=== PATIENT | female | born 1985 | race Caucasian/White ===

== ENCOUNTER → 2018-05-18 16:22 | Outpatient (REF) | payer MEDICAID, SELFPAY ==
[2018-05-18 20:46] LABS: TSH (W/Ref FT4) 2.45 uIU/mL (0.358-3.74)
== END ==
LOC: NCHCN 16:22
PROVIDERS: PCP Nurse Practitioner Adult Health; Visit Provider Nurse Practitioner
DX: E03.9 Hypothyroidism, unspecified (principal)
CPT/HCPCS: 84443

== ENCOUNTER 2019-07-26 09:37 | Outpatient (REF) | payer MEDICAID, SELFPAY ==
[2019-07-26 12:33] LABS: TSH (W/Ref FT4) 1.61 uIU/mL (0.36-3.74)
== END 2019-07-26 09:57 ==
LOC: NCHCN 09:37
PROVIDERS: PCP Nurse Practitioner; Visit Provider Nurse Practitioner
DX: E03.9 Hypothyroidism, unspecified (principal)
CPT/HCPCS: 84443

== ENCOUNTER 2020-04-03 10:05 | Outpatient (REF) | payer MEDICAID, SELFPAY ==
--- NOTE | 2020-04-03 08:30 | PAPFT_PTH ---
PATIENT: Chely Hooper LOC: [facility] U#:[id number] AGE/SX: 35/F ROOM: RE04/03/[address]: Nasrin Shelton NP : 1985 BED: DIS: 04/03/2020 SPEC #: [id number] RECD: 04/03/20 12:55 STATUS: YOLANDA RECristhian #: [id number] KI: 04/03/20 08:[address]: Nasrin Shelton NP DEPT: [facility] Cytology RECD BY: Ciera Bobo ENTERED: 04/03/20 12:56 SP TYPE: PAPFT OTHR DR: Rachel Montalvo Tissues: 1 - CX/ENDOCX FOR PAP SMEARS Procedures: PAP THIN PREP/[facility] Screening HPV DNA PROBE Comments: [id number]
== END 2020-04-03 10:25 ==
LOC: LBN 10:05
PROVIDERS: PCP Nurse Practitioner; Visit Provider Nurse Practitioner Women's Health
DX: Z12.4 Encounter for screening for malignant neoplasm of cervix (principal); Z11.51 Encounter for screening for human papillomavirus (HPV)
CPT/HCPCS: 88142; 87624

== ENCOUNTER 2020-08-07 13:14 | Outpatient (REF) | payer MEDICAID, SELFPAY ==
[2020-08-07 19:17] LABS: HCT 37.2 % (36.0-46.0); HGB 12.2 g/dL (11.2-15.7); MCH 29.9 pg (27.0-33.0); MCHC 32.8 % (32.0-36.0); MCV 91.2 fL (80-95); Platelet Count 253 10^3/uL (130-400); RBC 4.08 10^6/uL (3.93-5.22); RDW 11.7 % (11.7-14.6); RDW-SD 38.9 fL; WBC 8.84 10^3/uL (4.4-10.8)
[2020-08-07 19:51] LABS: ALT 16 U/L (14-59); AST 12 U/L (15-37); Albumin 3.8 g/dL (3.4-5.0); Alkaline Phosphatase 31 U/L (46-116); Anion Gap 8.7 mmol/L (3-11); BUN 15 mg/dL (7-18); Bilirubin, Total 0.3 mg/dL (0.2-1.0); CO2 25.3 mmol/L (21.0-32.0); CREATININE 0.71 mg/dL (0.55-1.02); Calcium 9.2 mg/dL (8.5-10.1); Chloride 105 mmol/L (98-107); Glucose 82 mg/dL (74-106); Potassium 4.1 mmol/L (3.5-5.1); Sodium 139 mmol/L (136-145); TSH (W/Ref FT4) 1.83 uIU/mL (0.36-3.74); Total Protein 7.6 g/dL (6.4-8.2)
[2020-08-07 20:55] LABS: Vitamin D 25 Total 41.3 ng/ml (30-100)
== END 2020-08-07 13:34 ==
LOC: NCHCN 13:14
PROVIDERS: PCP Nurse Practitioner; Visit Provider Nurse Practitioner
DX: E03.9 Hypothyroidism, unspecified (principal); R53.83 Other fatigue; Z13.21 Encounter for screening for nutritional disorder
CPT/HCPCS: 80053; 82306; 85027; 84443

== ENCOUNTER 2021-07-20 18:43 | Emergency (ER) | payer MEDICAID, SELFPAY ==
[2021-07-20 18:54] VITALS: BP 138/94; PULSE 91; RESP 18; TEMP 36.4; O2SAT 100
--- NOTE | 2021-07-20 19:00 | DI.RAD_ITS ---
Exam(s) XR FOOT RT COMPLETE EXAM: XR FOOT RT COMPLETE CLINICAL HISTORY: pain. TECHNIQUE: 2D digital imaging was performed. COMPARISON: No exams were available for comparison FINDINGS: BONES: No acute fracture is present. No bony destructive lesion is seen. JOINTS: No dislocation present. SOFT TISSUE: Normal. IMPRESSION: Unremarkable radiographs of the right foot. DATA REPOSITORY: RADIATION DOSE DELIVERED:
--- NOTE | 2021-07-20 19:01 | W.ED.GENAD ---
Discharge Plan Disposition Patient Disposition: HOME Condition: Stable Discharge Details Clinical Impression: Foot pain, right Primary Care Provider: Rachel Montalvo ED Provider: Idris Shelton Home Meds and New Rx's Prescriptions: Continued levothyroxine 75 mcg tablet 75 mcg PO DAILY RF: 0 levonorgestrel-ethinyl estrad [Jolessa] 0.15 mg-30 mcg (91) tablets,dose pack,3 month 1 tab PO DAILY Qty: 91 RF: 0 Discharge Instructions Additional Instructions: Your xray did not show a broken bone follow up with your primary care provider in a week if pain continues try to avoid heavy lifting or strenuous exercise you can take 1000mg tylenol and 600mg ibuprofen every 6 hours. Trying to keep it elevated when sitting can help along with icing the foot if you feel more ill, develop fevers or spreading redness of the foot return to the emergency department Medical Decision Making 36 yo female comes in with chief complaint right foot pain. 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 She localizes the pain to the dorsal surface of the right foot and has no visible or palpable deformity. She has full range of motion of the ankle and toes. Normal sensation and pulses, no erythema or warmth. Exam and history suspect strain or overuse injury but will xray to evaluate for fracture. No findings on exam or history to suggest osteomyelitis or other infectious etiology xray unremarkable on my read, do not feel she needs to wait for vrad read. Will have her use prn ibuprofen and tylenol and advised if pain continues in a week to follow up with pcp, return precautions given Differential Diagnosis Differential Diagnosis: strain, sprain, fracture Imaging Data Radiologic Study: Attestation: I personally reviewed and interpreted this imaging study as follows: Imaging: X-Ray My impression: no acute findings HPI General Mode of arrival: ambulatory. Date/Time Provider Initiated Documentation: 07/20/21 18:44. Limitations to Documentation: no limitations. Information obtained by: patient. History of Present Illness 36 year old F presents to the emergency department with the chief complaint of right foot pain, described as moderate, Quality is described as aching, Patient started experiencing this week(s) (1) and it has been constant. Rest improves symptom(s), Movement worsens symptoms . Patient notes no other symptoms.. Patient did receive the following treatments prior to arrival, none Related Data Home Medications Medication Instructions Recorded Confirmed levothyroxine 75 mcg tablet 75 mcg PO DAILY tab-cap 04/03/20 07/20/21 levonorgestrel 0.15 mg-ethinyl 1 tab PO DAILY #91 dose pk 06/18/21 07/20/21 estradiol 30 mcg tablets,3 mos pack(91) Previous Rx's Medication Instructions Recorded levonorgestrel 0.15 mg-ethinyl 1 tab PO DAILY #91 dose pk 06/18/21 estradiol 30 mcg tablets,3 mos pack(91) Allergies Allergy/AdvReac Type Severity Reaction Status Date / Time No Known Drug Allergies Allergy Unverified 07/20/21 18:57 General Stated Complaint: Orthopedic ANYI: 4 Review of Systems All systems reviewed & are unremarkable except as noted in HPI and below Constitutional Constitutional: Denies chills, Denies fever(s) and Denies weakness Cardiovascular Cardiovascular: Denies chest pain and Denies dyspnea Respiratory Respiratory: Denies cough and Denies dyspnea Gastrointestinal Gastrointestinal: Denies abdominal pain, Denies nausea and Denies vomiting Musculoskeletal Musculoskeletal: Denies joint swelling Neurologic Neurologic: Denies weakness PFSH Medical History Hypothyroidism Uses oral contraceptives as primary control method (08/18/17) Surgical History [place] teeth extracted Family History Father Cancer bladder Mother Hypothyroid Sister Hypothyroid Social History Smoking/Tobacco Use Status: Former Tobacco Use Smoking risk assessment performed?: Yes Alcohol Intake: current Alcohol Intake frequency: holidays/special occasions only Alcohol type: beer Substance use type: does not use Do you feel safe at home: Yes Do you feel safe in your relationship?: Yes Female Reproductive History Menstrual control method: pills History History 2 Para 2 Hx # Term Pregnancies Multiple births Hx # Pregnancies Ectopic pregnancies AB induced Hx Number of Living Children AB spontaneous Exam Const General: no acute distress Orientation: alert HENMT Head: normal to inspection Ears: external ears normal General nose exam: external nose normal Mouth: moist mucous membranes Eyes General: appearance normal, both eyes and all related structures Neck Neck: normal visual inspection Resp Effort & Inspection: normal respiratory effort and able to speak in complete sentences Cardio Rate: regular rate Skin General skin exam: no rashes or lesions noted Neuro General: patient alert and patient oriented x3 Extrem General: normal to inspection Psych Mental Status: mental status grossly normal Course Vital Signs Vital signs: Vital Signs Temperature 36.4 C L 07/20/21 18:54 Pulse 91 H 07/20/21 18:54 Respiratory Rate 18 07/20/21 18:54 Blood Pressure 138/94 H 07/20/21 18:54 Pulse Oximetry 100 07/20/21 18:54 Temperature 36.4 C L 07/20/21 18:54 Pulse 91 H 07/20/21 18:54 Respiratory Rate 18 07/20/21 18:54 Respiratory Effort Non-Labored 07/20/21 18:57 Blood Pressure 138/94 H 07/20/21 18:54 Pulse Oximetry 100 07/20/21 18:54 Pain Level 6 07/20/21 18:54 PAWSS Have you Been Recently Intoxicated or Drunk Within the Last 30 days?: No Have you Ever Experienced Previous Episodes of Alcohol Withdrawal?: No Have you ever Experienced Withdrawal Seizures?: No Have you ever Experienced Delirium Tremens(DT)s?: No Have you ever undergone Alcohol Rehabilitation Treatment (i.e, inpt ot outpatient treatment programs)?: No Have you ever Experienced Blackouts?: No Have you ever Combined Alcohol with other Downers within the last 90 days?: No Have you ever Combined Alcohol with any other Substance of Abuse during the last 90 days?: No Positive Blood Alcohol level on Presentation? [PCS.BAL]: No Evidence of Increased Autonomic Activity (i.e. HR>120, tremor, sweating, agitation, nausea)?: No Result: 0
--- NOTE | 2021-07-20 20:11 | DI.VRAD_ITS ---
PROCEDURE INFORMATION: Exam: XR Right Foot Exam date and time: 07/20/2021 19:02 Age: 36 years old Clinical indication: Other: Pain TECHNIQUE: Imaging protocol: XR Right foot. Views: 3 or more views. COMPARISON: No relevant prior studies available. FINDINGS: Bones/joints: Minimal hallux valgus is suggested on the oblique view only. No significant degenerative changes are seen. No acute fracture or subluxation. Soft tissues: Normal. IMPRESSION: No acute bony pathology. Dictated and Authenticated by: Anne Perdue MD. Ordering:IGNACIA Steinberg MD
== END 2021-07-20 20:00 | disposition home or self-care (01) ==
PROVIDERS: Emergency Provider Emergency Medicine; PCP Nurse Practitioner
DX: M79.671 Pain in right foot (principal)
CPT/HCPCS: 99283; 73630

== ENCOUNTER 2021-08-27 09:40 | Outpatient (REF) | payer MEDICAID, SELFPAY ==
--- NOTE | 2021-08-27 09:00 | PAPFT_PTH ---
PATIENT: Chely Hooper LOC: [facility] U#:[id number] AGE/SX: 36/F ROOM: RE08/27/[address]: Nasrin Shelton NP : 1985 BED: DIS: 08/27/2021 SPEC #: [id number] RECD: 08/27/21 13:01 STATUS: YOLANDA RECristhian #: [id number] KI: 08/27/21 09:[address]: Nikita ARMENDARIZ,Nasrin DEPT: [facility] Cytology RECD BY: Ciera Bobo ENTERED: 08/27/21 13:02 SP TYPE: PAPFT OTHR DR: Rachel Montalvo Tissues: 1 - CX/ENDOCX FOR PAP SMEARS Procedures: PAP THIN PREP/[facility] Screening HPV DNA PROBE Comments: [id number]
== END 2021-08-27 09:41 | disposition home or self-care (01) ==
LOC: LBN 09:40
PROVIDERS: PCP Nurse Practitioner; Visit Provider Nurse Practitioner Women's Health
DX: Z12.4 Encounter for screening for malignant neoplasm of cervix (principal); Z11.51 Encounter for screening for human papillomavirus (HPV); R87.820 Cervical low risk human papillomavirus (HPV) DNA test positive
CPT/HCPCS: 88142; 87624

== ENCOUNTER 2021-08-30 16:31 | Outpatient (REF) | payer MEDICAID, SELFPAY ==
[2021-08-31 13:08] LABS: COVID-19 RT-PCR UVMMC Result Negative (Negative)
== END 2021-08-30 16:32 | disposition home or self-care (01) ==
LOC: LBN 16:31
PROVIDERS: PCP Nurse Practitioner; Visit Provider Nurse Practitioner Family
DX: Z20.822 Contact with and (suspected) exposure to COVID-19 (principal)
CPT/HCPCS: U0003

== ENCOUNTER 2021-10-02 10:04 | Outpatient (REF) | payer MEDICAID, SELFPAY ==
--- NOTE | 2021-10-02 09:30 | ENDO_PTH ---
PATIENT: Chely Hooper LOC: [facility] #:[id number] AGE/SX: 36/F ROOM: RE10/02/[address]: Alejandra Davison : 1985 BED: DIS: 10/02/2021 SPEC #: [id number] RECD: 10/02/21 12:50 STATUS: YOLANDA WALDRON #: [id number] KI: 10/02/21 09:[address]: Alejandra Davison DEPT: Surgical Specimen RECD BY: Ciera Bobo ENTERED: 10/02/21 12:51 SP TYPE: Endo OTHR DR: Rachel Montalvo Tissues: 1 - ENDOCERVICAL BX/CURRETTE 2 - CERVICAL BIOPSY Procedures: GROSS AND MICRO LEVEL 4 IMMUNOPEROXIDASE STAIN P16 IPEX Comments: [id number]
== END 2021-10-02 10:05 | disposition home or self-care (01) ==
LOC: LBN 10:04
PROVIDERS: PCP Nurse Practitioner; Visit Provider Obstetrics & Gynecology Gynecology
DX: N87.1 Moderate cervical dysplasia (principal)
CPT/HCPCS: 88305; 88342; 88361

== ENCOUNTER 2021-11-26 14:53 | Outpatient (REF) | payer MEDICAID, SELFPAY ==
[2021-11-26 20:26] LABS: BUN 15 mg/dL (7-18); CREATININE 0.7 mg/dL (0.55-1.02); Calcium 9.2 mg/dL (8.5-10.1); Chloride 103 mmol/L (98-107); Glucose 81 mg/dL (74-106); Sodium 138 mmol/L (136-145)
== END 2021-11-26 14:54 | disposition home or self-care (01) ==
LOC: NCHCN 14:53
PROVIDERS: PCP Nurse Practitioner; Visit Provider Nurse Practitioner Family
DX: E03.9 Hypothyroidism, unspecified (principal)
CPT/HCPCS: 80048; 84443

== ENCOUNTER 2021-11-30 10:06 | Outpatient (REF) | payer MEDICAID, SELFPAY ==
--- NOTE | 2021-11-30 09:30 | CER_PTH ---
PATIENT: Chely Hooper LOC: [facility]#:[id number] AGE/SX: 36/F ROOM: RE11/30/[address]: Alejandra Davison : 1985 BED: DIS: 11/30/2021 SPEC #: [id number] RECD: 11/30/21 12:29 STATUS: YOLANDA WALDRON #: [id number] KI: 11/30/21 09:[address]: Alejandra Davison DEPT: Surgical Specimen RECD BY: Ciera Bobo ENTERED: 11/30/21 12:30 SP TYPE: JANNETH PRABHAKAR DR: Rachel Montalvo Tissues: 1 - CERVICAL BIOPSY 2 - CERVICAL BIOPSY Procedures: GROSS AND MICRO LEVEL 5 Comments: [id number]
== END 2021-11-30 10:07 | disposition home or self-care (01) ==
LOC: LBN 10:06
PROVIDERS: PCP Nurse Practitioner; Visit Provider Obstetrics & Gynecology Gynecology
DX: N87.1 Moderate cervical dysplasia (principal)
CPT/HCPCS: 88305; 88307

== ENCOUNTER 2022-11-11 11:54 | Outpatient (REF) | payer MEDICAID, SELFPAY ==
--- NOTE | 2022-11-11 10:45 | PAPFT_PTH ---
PATIENT: Chely Hooper LOC: [facility] U#:[id number] AGE/SX: 37/F ROOM: RE11/11/[address]: Nasrin Shelton NP : 1985 BED: DIS: 11/11/2022 SPEC #: [id number] RECD: 11/11/22 12:42 STATUS: YOLANDA REQ #: [id number] KI: 11/11/22 10:[address]: Nasrin Shelton NP DEPT: [facility] Cytology RECD BY: Ciera Bobo ENTERED: 11/11/22 12:46 SP TYPE: PAPFT OTHR DR: Thomas Salinas DNP Tissues: 1 - CX/ENDOCX FOR PAP SMEARS Procedures: PAP THIN PREP/[facility] Screening HPV DNA PROBE Comments: [id number]
== END 2022-11-11 11:55 | disposition home or self-care (01) ==
LOC: LBN 11:54
PROVIDERS: PCP Nurse Practitioner Family; Visit Provider Nurse Practitioner Women's Health
DX: Z12.4 Encounter for screening for malignant neoplasm of cervix (principal); Z11.51 Encounter for screening for human papillomavirus (HPV)
CPT/HCPCS: 88142; 87624

== ENCOUNTER 2022-11-26 02:24 | Outpatient (CLI) | payer MEDICAID, SELFPAY ==
[2022-11-26 12:25] LABS: HCT 37.6 % (36.0-46.0); HGB 12.1 g/dL (11.2-15.7); MCH 30.1 pg (27.0-33.0); MCHC 32.2 % (32.0-36.0); MCV 94 fL (80-95); Platelet Count 261 10^3/uL (130-400); RBC 4.02 10^6/uL (3.93-5.22); RDW 11.9 % (11.7-14.6); WBC 10.34 10^3/uL (4.4-10.8)
[2022-11-26 12:50] LABS: Anion Gap 8.6 mmol/L (3-11); BUN 18 mg/dL (7-18); CO2 25.4 mmol/L (21.0-32.0); CREATININE 0.7 mg/dL (0.55-1.02); Calcium 9.3 mg/dL (8.5-10.1); Chloride 104 mmol/L (98-107); Estimated GFR 114.16 (mL/min/1.73m2); Glucose 90 mg/dL (74-106); Potassium 4.1 mmol/L (3.5-5.1); Sodium 138 mmol/L (136-145); TSH (W/Ref FT4) 2.22 uIU/mL (0.36-3.74)
== END 2022-11-26 02:25 | disposition home or self-care (01) ==
LOC: LOS 02:24
PROVIDERS: PCP Nurse Practitioner Family; Visit Provider Nurse Practitioner Family
DX: R53.83 Other fatigue (principal); E03.9 Hypothyroidism, unspecified; Z13.1 Encounter for screening for diabetes mellitus
CPT/HCPCS: 36415; 80048; 85027; 84443

== ENCOUNTER → 2023-08-26 01:25 | Outpatient (CLI) | payer MEDICAID, SELFPAY ==
--- NOTE | 2023-08-26 08:15 | DI.US_ITS ---
Exam(s) US THYROID EXAM: US THYROID CLINICAL HISTORY: enlarged thyroid,HYPOTHYROIDISM,E03.9. TECHNIQUE: Ultrasound thyroid performed using standard protocol. COMPARISON: US OB US 2-3 TRIMESTER TRANSABD*P from 09/14/2014 FINDINGS: This is a normal study. Both thyroid lobes are not enlarged and there is normal homogeneous echotext ure throughout the thyroid gland, with no evidence of nodules in either lobe nor in the isthmus. Right thyroid lobe measures 1 cm AP by 1 cm wide by 3 cm cephalocaudal Left thyroid lobe measures 0.8 cm AP x 1 cm wide by 2.8 cm cephalocaudal LYMPH NODES: There is no significant adenopathy. IMPRESSION: Unremarkable thyroid ultrasound exam DATA REPOSITORY:
== END ==
PROVIDERS: PCP Nurse Practitioner Family; Visit Provider Nurse Practitioner Family
DX: E03.9 Hypothyroidism, unspecified (principal)
CPT/HCPCS: 76536

== ENCOUNTER 2023-09-05 01:34 | Outpatient (CLI) | payer MEDICAID, SELFPAY ==
[2023-09-05 12:38] LABS: FREE T4 1.21 ng/dL (0.76-1.46); TSH (W/Ref FT4) 2.39 uIU/mL (0.36-3.74)
[2023-09-05 12:53] LABS: T4 11.9 ug/dL (4.7-13.3)
[2023-09-05 20:00] LABS: T3,Free 4.8 pg/mL (2.8-5.3)
[2023-09-05 20:15] LABS: T3, Total 150 ng/dL (97-169)
== END 2023-09-05 01:35 | disposition home or self-care (01) ==
LOC: LOS 01:34
PROVIDERS: PCP Nurse Practitioner Family; Visit Provider Nurse Practitioner Family
DX: E03.9 Hypothyroidism, unspecified (principal)
CPT/HCPCS: 36415; 84436; 84439; 84443; 84480; 84481

== ENCOUNTER 2023-11-17 16:55 | Outpatient (REF) | payer MEDICAID, SELFPAY ==
--- NOTE | 2023-11-17 14:40 | PAPFT_PTH ---
PATIENT: Chely Hooper LOC: [facility] U#:[id number] AGE/SX: 38/F ROOM: RE11/17/[address]: Rupinder Lind CNM : 1985 BED: DIS: 11/17/2023 SPEC #: [id number] RECD: 11/17/23 17:27 STATUS: YOLANDA REQ #: [id number] KI: 11/17/23 14:[address]: Rupinder Lind DEPT: [facility] Cytology RECD BY: Ciera Bobo ENTERED: 11/17/23 17:27 SP TYPE: PAPFT OTHR DR: Thomas Salinas DNP Tissues: 1 - CX/ENDOCX FOR PAP SMEARS Procedures: PAP THIN PREP/[facility]VM Screening Comments: [id number] (CHLAMYDIA/GC)
[2023-11-18 14:12] LABS: Chlamydia Result Negative (Negative); GC Result Negative (Negative)
== END 2023-11-17 16:56 | disposition home or self-care (01) ==
LOC: LBN 16:55
PROVIDERS: PCP Nurse Practitioner Family; Visit Provider Advanced Practice Midwife
DX: Z01.419 Encounter for gynecological examination (general) (routine) without abnormal findings (principal); Z12.4 Encounter for screening for malignant neoplasm of cervix
CPT/HCPCS: 87491; 87591; 88142

== ENCOUNTER 2024-06-09 03:50 | Outpatient (CLI) | payer MEDICAID, SELFPAY | END 2024-06-09 03:51 | disposition home or self-care (01) | LOC: LOS 03:51 | PROVIDERS: PCP Nurse Practitioner Family; Visit Provider Nurse Practitioner Family | DX: E03.9 Hypothyroidism, unspecified (principal) | CPT/HCPCS: 36415; 84443 ==

== ENCOUNTER 2024-08-31 14:07 | Outpatient (CLI) | payer MEDICAID, SELFPAY ==
[2024-09-01 09:48] LABS: Thyroglobulin Antibody <15 U/mL (<=60); Thyroperoxidase Antibody 539 U/mL (<=60)
== END 2024-08-31 14:08 | disposition home or self-care (01) ==
LOC: LBO 14:08
PROVIDERS: PCP Nurse Practitioner Family; Visit Provider Nurse Practitioner Family
DX: E03.9 Hypothyroidism, unspecified (principal); L50.1 Idiopathic urticaria
CPT/HCPCS: 36415; 86376

== ENCOUNTER 2024-11-15 12:49 | Outpatient (REF) | payer MEDICAID, SELFPAY ==
--- NOTE | 2024-11-15 11:40 | PAPFT_PTH ---
PATIENT: Chely Hooper LOC: [facility] U#:[id number] AGE/SX: 39/F ROOM: RE11/15/[address]: Nasrin Shelton NP : 1985 BED: DIS: 11/15/2024 SPEC #: [id number] RECD: 11/15/24 17:55 STATUS: YOLANDA REQ #: [id number] KI: 11/15/24 11:[address]: Nasrin Shelton NP DEPT: [facility] Cytology RECD BY: Ciera Bobo ENTERED: 11/15/24 17:55 SP TYPE: PAPFT OTHR DR: Thomas Salinas DNP Tissues: 1 - CX/ENDOCX FOR PAP SMEARS Procedures: PAP THIN PREP/UVM Screening HPV DNA PROBE Comments: [id number] (HPV 16 & 18/45)
== END 2024-11-15 12:50 | disposition home or self-care (01) ==
LOC: LBN 12:49
PROVIDERS: PCP Nurse Practitioner Family; Visit Provider Nurse Practitioner Women's Health
DX: Z01.419 Encounter for gynecological examination (general) (routine) without abnormal findings (principal); Z78.9 Other specified health status; N87.1 Moderate cervical dysplasia; I10 Essential (primary) hypertension
CPT/HCPCS: 88142; 87624

== ENCOUNTER 2025-01-03 01:24 | Outpatient (CLI) | payer MEDICAID, SELFPAY ==
--- NOTE | 2025-01-03 08:45 | DI.MAMMO_ITS ---
Exam(s) MAMMO SCREENING EXAM: MAMMO SCREENING CLINICAL HISTORY: screening TECHNIQUE: Mammograms were interpreted according to the usual protocol including computer analysis w [employer] CAD system, tomosynthesis and C-view imaging. COMPARISON: None. Baseline examination. FINDINGS: The breasts are composed of heterogeneously dense fibroglandular densities, Breast Density category C . No suspicious masses or suspicious microcalcifications are seen. No skin thickening or abnormal axillary lymph nodes are seen. IMPRESSION: BI-RADS Category 1, Negative mammogram. Yearly screening mammography is recommended. Breast Density Category C, heterogeneously Dense. The mammogram demonstrates the patient's breast tissue is dense. Dense breast tissue is very common a nd is not abnormal but dense breast tissue can make it harder to find cancer on a mammogram. Also, de nse breast tissue may increase breast cancer risk. This information about the result of the mammogram report was provided to the patient to raise their awareness. Use this report when you speak with the patient about their risks for breast cancer, which includes their family history. At that time, you may recommend additional screening tests (Ultrasound or MRI) as they might be useful based on their r isk. A negative radiographic report should not delay biopsy if a dominant or clinically suspicious mass is present. Up to ten percent of cancers are not identified on mammography. A negative report may reinforce clinical impression. Adenosis and dense breasts may obscure an underlying neoplasm. False positive reports average 6 to 10%.
== END 2025-01-03 01:44 ==
LOC: DI 01:25
PROVIDERS: PCP Nurse Practitioner Family; Visit Provider Nurse Practitioner Women's Health
DX: Z12.31 Encounter for screening mammogram for malignant neoplasm of breast (principal); R92.333 Mammographic heterogeneous density, bilateral breasts
CPT/HCPCS: 77063; 77067

== ENCOUNTER 2025-03-22 16:24 | Outpatient (REF) | payer MEDICAID, SELFPAY ==
[2025-03-22 21:21] LABS: ALT 23 U/L (14-59); AST 12 U/L (15-37); Albumin 3.9 g/dL (3.4-5.0); Alkaline Phosphatase 48 U/L (46-116); BUN 13 mg/dL (7-18); Bilirubin, Total 0.2 mg/dL (0.2-1.0); CREATININE 0.9 mg/dL (0.55-1.02); Calcium 9.1 mg/dL (8.5-10.1); Calculated LDL 69 mg/dL (<100); Chloride 103 mmol/L (98-107); Cholesterol 149 mg/dL (<200); Estimated GFR 82.88 (mL/min/1.73m2); Glucose 74 mg/dL (74-106); HDL Cholesterol 65 mg/dL (>or=50); Potassium 4.3 mmol/L (3.5-5.1); Sodium 138 mmol/L (136-145); TSH (W/Ref FT4) 1.78 uIU/mL (0.36-3.74); Total Protein 7.5 g/dL (6.4-8.2); Triglyceride 75 mg/dL (<150)
[2025-03-23 19:02] LABS: Thyroglobulin Antibody <15 U/mL (<=60); Thyroperoxidase Antibody 349 U/mL (<=60)
[2025-03-24 10:42] LABS: HIV-1/2 Ag & Ab Screen Negative (Negative)
[2025-03-24 13:37] LABS: HBs Antibody, Quant 8.8 mIU/mL (See Note); Hep B Surface Ab Negative (See Note); Hepatitis B Core Antibody Negative (Negative); Hepatitis B Surface Antigen Negative (Negative); Hepatitis C Ab w Rflx HCV PCR Reactive (Negative)
[2025-03-25 12:10] LABS: HCV RNA Qualitative Undetected (Undetected)
== END 2025-03-22 16:25 | disposition home or self-care (01) ==
LOC: LBN 16:24
PROVIDERS: PCP Nurse Practitioner Family; Visit Provider Nurse Practitioner Family
DX: E06.3 Autoimmune thyroiditis (principal); Z11.59 Encounter for screening for other viral diseases; Z13.220 Encounter for screening for lipoid disorders; Z11.4 Encounter for screening for human immunodeficiency virus [HIV]
CPT/HCPCS: 80053; 80061; 86376; 86704; 86706; 86803; 87340; 87389; 87522; 84443